=== PATIENT | female | born 1955 | race Caucasian/White ===

== ENCOUNTER → 2017-04-01 | Outpatient (CLI) | payer BC ==
[~2017-04-01] MED LIST: ALLOPURINOL300 MG PO; AMARYL1 MG PO; ATENOLOL PO; B COMPLEX1 TAB PO; BAYER ASPIRIN325 M1 PO; CALCIUM500 MG PO; CELEXA20 MG PO; COLCHICINE PO; ESTROVEN MAX400 MCG PO; FLONASE 0.05% N16 GM; JENTADUETO 2.51 EACH PO; LORTAB 5-325 M1 EACH PO; LOSARTAN POTASS50 MG PO; LOVASA PO; MULTI VITAMIN1 EACH PO; NEURONTIN100 MG PO; NIACIN50 MG PO; OMEPRAZOLE40 MG PO; PRAVASTATIN SOD20 MG PO; PRILOSEC40 MG PO; REGLAN5 MG PO; VIT E PO; ZOFRAN PO; ZYRTEC PO; [UNRECOGNIZED DRUG - OTHER] TOP
[2017-04-01 13:47] LABS: URINE APPEARANCE CLEAR; URINE BILIRUBIN NEG (NEG); URINE BLOOD NEG (NEG); URINE COLOR YELLOW; URINE GLUCOSE NEG (NEG); URINE KETONE NEG (NEG); URINE LEUKOCYTE ESTERASE NEG (NEG); URINE NITRATE NEG (NEG); URINE PH 5.5 (5-8); URINE PROTEIN NEG (NEG); URINE SPECIFIC GRAVITY 1.016 (1.003-1.035); URINE UROBILINOGEN 0.2 MG/DL (NEG)
[2017-04-01 13:49] LABS: BASOPHIL% 0.7 % (0-2.5); EOSINOPHIL# 0.3 X10e3 (0-0.7); EOSINOPHIL% 4.3 % (0.0-7.0); HEMATOCRIT 36.6 % (35.0-45.0); HEMOGLOBIN 11.8 gm/dL (12.0-16.0); LYMPHOCYTE# 2.1 X10e3 (1.0-3.5); LYMPHOCYTE% 31.7 % (17.0-45.0); MEAN CELL VOLUME 91.7 FL (83-96); MEAN CORPUSCULAR HEMOGLOBIN 29.7 PG (28-34); MEAN CORPUSCULAR HGB CONC 32.3 g/dL (30-36); MEAN PLATELET VOLUME 7.8 FL (6.5-11.5); MONOCYTE# 0.6 X10e3 (0-1.0); MONOCYTE% 9.5 % (3.0-12.0); NEUTROPHIL# 3.5 X10e3 (1.5-7.1); NEUTROPHIL% 53.8 % (40-75); PLATELET COUNT 271 X10e3 (140-420); RED CELL DISTRIBUTION WIDTH 14.6 % (11.0-15.5); URINE SOURCE CLEAN CATCH; WHITE BLOOD COUNT 6.5 X10e3 (4.0-10.5)
[2017-04-01 13:54] LABS: DIFF IND NO
[2017-04-01 14:30] LABS: BILIRUBIN,TOTAL 0.6 mg/dL (0.2-2.0); BUN/CREATININE RATIO 23.84; CALCIUM SERUM 9.3 mg/dL (8.4-10.2); CREATININE SERUM 1.3 mg/dL (0.6-1.4); GLOM FILT RATE Estimated 43.9 mL/min (>60); POTASSIUM 4.6 mmol/L (3.5-5.1); PROTEIN TOTAL SERUM 7.6 g/dL (6.0-8.3); URIC ACID 4.2 mg/dL (2.6-7.2)
[2017-04-04 00:56] LABS: MICROALB UR (PNL) 4.2 mg/dL (***)
== END | disposition home or self-care (01) ==
LOC: CLAB 13:07
PROVIDERS: Internal Medicine Nephrology
DX: N18.2 Chronic kidney disease, stage 2 (mild) (principal)
CPT/HCPCS: 80053; 81003; 82043; 82570; 84550; 85025

== ENCOUNTER → 2017-07-16 | Outpatient (CLI) | payer BC ==
--- NOTE | ~2017-07-16 | MY30 ---
[facility] A Service [facility] RADIOLOGY TEXT RESULTS PATIENT: RIDDHI DIAMOND LOCATION: [facility] : 53 UNIT #: [id number] AGE: [address]: rByce Olmstead MD SEX: F ORDER DR: [id number] [address] [id number] [id number] O MR#: [id number] Acc #: [id number] NAME: RIDDHI DIAMOND : 1955 SEX: F STUDY DATE/TIME: 07/16/2017 11:45 UNIT: [facility] ROOM: STUDY DESCRIPTION: MY SCREEN HARVINDER BILAT DIGITAL Attending Physician: Bryce Olmstead M.D. Ordering Physician: Bryce Olmstead M.D. Primary Care Physician: Bryce Olmstead M.D. MEDICAL IMAGING REPORT This report is preliminary unless electronic signature is present. EXAM Bilateral digital screening mammogram with CAD HISTORY Routine screening. No current complaints. No family history of breast cancer. COMPARISON 07/09/2016, 07/05/2015, 05/31/2014. FINDINGS MLO and CC digital views of each breast were obtained. The exam was reviewed with an FDA-approved CAD device. There are scattered fibroglandular densities. There are no masses or abnormal calcifications. There has been no change. IMPRESSION No change, no evidence of malignancy. Patients over the age of 40 are entered into a reminder system with target due date for the next mammogram. A result letter will also be sent to the patient. BIRADS: 1 Negative Dictated by... Timothy Harrington M.D. THIS IS AN ELECTRONICALLY VERIFIED REPORT Timothy Harrington M.D. at 07/16/2017 3:56 PM [facility] A Service [facility] RADIOLOGY TEXT RESULTS PATIENT: RIDDHI DIAMOND LOCATION: [facility] : 53 UNIT #: [id number] AGE: [address]: Bryce Olmstead MD SEX: F ORDER DR: Ade TD: 07/16/2017 15:33 JOB #: [id number] MEDICAL IMAGING REPORT Page 1 of 1
== END | disposition home or self-care (01) ==
LOC: SMAM 11:06
DX: Z12.31 Encounter for screening mammogram for malignant neoplasm of breast (principal)
CPT/HCPCS: G0202